=== PATIENT | female | born 1965 | race Caucasian/White ===

== ENCOUNTER → 2020-07-05 18:02 | Outpatient (CLI) | payer OTHER, SELFPAY ==
--- NOTE | ~2020-07-05 | DEXA_ITS ---
Bone Density Report Name: Yomaira Watt Age: 54 Sex: Female Ethnicity: White Date of : 1965 Indication: postmenopausal; screening for osteoporosis; height loss; Referring Provider: Yamel, Esme Study: Bone densitometry was performed. Exam Date: July 05, 2020 Accession number: [id number] Bone Density: Region BMD T-score Z-score Classification AP Spine (L1-L4) 0.969 -0.7 0.2 Normal Femoral Neck (Left) 0.861 0.1 1.0 Normal Total Hip (Left) 0.967 0.2 0.8 Normal Femoral Neck (Right) 0.805 -0.4 0.5 Normal Total Hip (Right) 0.936 0.0 0.5 Normal Total Hip Mean 0.952 0.1 0.7 Normal World Health Organization criteria for BMD impression classify patients as: Normal (T-score at or above -1.0), Osteopenia (T-score between -1.0 and -2.5), or Osteoporosis (T-score at or below -2.5). 10-year Fracture Risk: FRAX not reported because: All T-scores for Spine Total, Hip Total, Femoral Neck at or above -1.0 Clinical Information Provided by Patient: Has used the following medications: Vitamin D Patient maximum height was 67 Menopause Age: 51 Drinks caffeinated beverages Onset of menses at age 14 Number of children 0 Impression: The patient has normal bone mass. Discussion: BONE DENSITY IS ABOVE THE MINIMUM DESIRABLE LEVEL AT ALL SKELETAL SITES TESTED. This patient?s bone mineral density is above the minimum desirable level (T-score -1.0 or better) at all sites measured. The patient should follow a healthful lifestyle (good nutrition with adequate calcium and vitamin D, and appropriate weight-bearing exercise). Follow-Up: Consider repeating this study in 5 years or sooner if there is some new clinical indication. Reported by: CIRILO on 07/05/2020 6:19:00 PM. Reviewed, dictated and finalized at location AKiran ARMSTRONG
== END ==
PROVIDERS: Visit Provider Nurse Practitioner
DX: Z13.820 Encounter for screening for osteoporosis (principal)
CPT/HCPCS: 77080

== ENCOUNTER → 2021-08-17 16:17 | Outpatient (CLI) | payer BC, SELFPAY ==
--- NOTE | ~2021-08-17 | MM_ITS ---
EXAMINATION: MM screening [facility] BI w maria del carmen HISTORY: Screening TECHNIQUE: Craniocaudal and mediolateral oblique 3-D tomosynthesis images were obtained and synthetic 2-D images were generated. CAD analysis was submitted and interpreted. COMPARISON: Comparison to multiple prior studies sequentially, with oldest reviewed study dated 04/04. BREAST PARENCHYMAL COMPOSITION: There are scattered areas of fibroglandular density. FINDINGS: There is no evidence of suspicious mass, calcification, or architectural distortion to sugg est malignancy in either breast. There has been no suspicious interval change. IMPRESSION: 1. No mammographic evidence of malignancy. 2. Recommend routine screening mammography in one year. BI-RADS Category 1: Negative Reviewed, dictated and finalized at location A.
== END ==
PROVIDERS: PCP Nurse Practitioner; Visit Provider Nurse Practitioner
DX: Z12.31 Encounter for screening mammogram for malignant neoplasm of breast (principal)
CPT/HCPCS: 77063; 77067

== ENCOUNTER → 2022-04-18 09:43 | Outpatient (CLI) | payer BC, SELFPAY ==
--- NOTE | ~2022-04-18 | US_ITS ---
EXAMINATION: US pelvic complete DATE: 04/18/2022 10:06 INDICATION: Postmenopausal bleeding Comparison:No prior studies for comparison. TECHNIQUE: Multiple transabdominal sonographic images of the pelvis performed. FINDINGS: The uterus measures 5.7 x 2.9 x 4.2 cm. The endometrial complex measures 3 mm. The right ovary measures 1.5 x 0.9 x 2.1 cm and the left ovary measures 1.8 x 1.1 x 2 cm. There are small follicles in each ovary. Normal doppler signal in both ovaries. There is no free fluid in the pelvis. There are no abnormal masses seen on either side. IMPRESSION: 1. Unremarkable pelvic ultrasound. Reviewed, dictated and finalized at location B. 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
== END ==
PROVIDERS: PCP Nurse Practitioner; Visit Provider Nurse Practitioner
DX: N95.0 Postmenopausal bleeding (principal)
CPT/HCPCS: 76856

== ENCOUNTER → 2022-08-20 10:35 | Outpatient (CLI) | payer BC, SELFPAY ==
--- NOTE | ~2022-08-20 | MM_ITS ---
EXAMINATION: MM screening [facility] BI w maria del carmen HISTORY: Screening mammogram TECHNIQUE: Craniocaudal and mediolateral oblique 3-D tomosynthesis images were obtained and synthetic 2-D images were generated. CAD analysis was submitted and interpreted. COMPARISON: 08/17/2021, 09/21/2017, 09/17/2016 BREAST PARENCHYMAL COMPOSITION: There are scattered areas of fibroglandular density. FINDINGS: No suspicious mass, calcification, or architectural distortion are identified in either mac ast to suggest malignancy. There has been no suspicious interval change. IMPRESSION: 1. No mammographic evidence of malignancy. 2. Recommend routine screening mammography in one year. BI-RADS Category 1: Negative Reviewed, dictated and finalized at location A.
== END ==
PROVIDERS: PCP Nurse Practitioner; Visit Provider Nurse Practitioner
DX: Z12.31 Encounter for screening mammogram for malignant neoplasm of breast (principal)
CPT/HCPCS: 77063; 77067

== ENCOUNTER 2023-02-18 17:05 | Emergency (ER) | payer BC, SELFPAY ==
--- NOTE | ~2023-02-18 | CT_ITS ---
EXAMINATION: CT brain wo con DATE: 02/18/2023 17:17 INDICATION: fall . TECHNIQUE: Computed tomography (CT) of the head was performed without intravenous contrast. The mA wa s adjusted according to patient size. Iterative reconstruction technique was employed. The dose-lengt h product was 605.33 mGy-cm. COMPARISON: None. FINDINGS: No acute intracranial hemorrhage or extra-axial fluid collection. No hydrocephalus, mass, or herniation. No acute ischemic infarct. Unremarkable dural venous sinus attenuation. No acute osseous abnormality. Large left posterior scalp hematoma. The aerated spaces are clear. IMPRESSION: No acute intracranial process. Reviewed, dictated and finalized at location K. 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
--- NOTE | ~2023-02-18 | CT_ITS ---
EXAMINATION: CT cervical spine wo con DATE: 02/18/2023 17:19 INDICATION: fall TECHNIQUE: Computed tomography (CT) of the cervical spine was performed without intravenous contrast. Automated exposure control and iterative reconstruction technique were employed. The dose-length pro duct was 268.27 mGy-cm. COMPARISON: None. FINDINGS: Vertebral Body Alignment: Intact. Reversed lordosis centered at C5-6. Craniocervical and atlantoaxial alignment: Moderate degenerative change. Alignment intact. Osseous structures/fracture: No evidence of a lytic or blastic process in the visualized spine. No e vidence of acute fracture. Cervical soft tissues: The paraspinal soft tissues planes are maintained. Degenerative changes: Degenerative changes, without severe neural foraminal or central canal narrowin g. IMPRESSION: No acute fracture or traumatic malalignment in the cervical spine. Reviewed, dictated and finalized at location K. O PROGRAM DIRECTOR
[2023-02-18 17:08] VITALS: BP 133/89; PULSE 106; RESP 16; TEMP 36.2; O2SAT 97
[2023-02-18 18:43] VITALS: BP 130/80; PULSE 80; RESP 16; TEMP 36.6; O2SAT 99
--- NOTE | 2023-02-18 18:50 | ED.FALL ---
HPI - Fall General Chief Complaint: Fall Stated Complaint: fall Time Seen by Provider: 02/18/23 17:26 History of Present Illness HPI Narrative: 57-year-old female presenting after a fall. States that she got out of a friend's jeep yesterday and her foot got caught on the railing and she fell back striking her head. She did not lose consciousness. States that she has a large goose egg on the back of her head. No vision or speech changes, numbness or weakness, neck or back pain. No further injuries. Related Data Allergies Allergy/AdvReac Type Severity Reaction Status Date / Time Penicillins Allergy Intermediate HIVES Verified 08/08/18 07:51 Review of Systems Review of Systems: All systems reviewed & are unremarkable except as noted in HPI and below PMFSH Family History Family History Father Hypertension Sibling Patient's sister is in good health Mother Family history of lung cancer, Onset Age: 59 Social History Social History Smoking status: Never smoker Alcohol intake: current Exam Narrative: GENERAL: Well-appearing, In no acute distress, pleasant and cooperative HEAD: Normocephalic, 3 x 3 cm hematoma left parietal region, no lacerations EYES: PERRLA and EOMI. ENT: Nares clear, no rhinorrhea or epistaxis. NECK: Supple. no midline tenderness CHEST: No respiratory distress. HEART: Regular rate and rhythm EXTREMITIES: Normal range of motion. SKIN: Warm, dry, no rash. NEURO: Alert and oriented x3. 5/5 strength in all extremities PSYCH: Normal mood and affect. Course Vital Signs Vital signs: Vital Signs Temperature 97.2 F L 02/18/23 17:08 Pulse Rate 106 H 02/18/23 17:08 Respiratory Rate 16 02/18/23 17:08 Blood Pressure 133/89 02/18/23 17:08 Pulse Oximetry 97 02/18/23 17:08 Temperature 97.8 F 02/18/23 18:43 Pulse Rate 80 02/18/23 18:43 Respiratory Rate 16 02/18/23 18:43 Blood Pressure 130/80 02/18/23 18:43 Pulse Oximetry 99 02/18/23 18:43 MDM - Fall MDM Narrative Medical decision making narrative: 57-year-old female presenting after closed head trauma. Vitals are stable. Exam remarkable for the above. CT brain and C-spine show no acute abnormalities. Patient is safe for outpatient management. Tylenol and ibuprofen for pain control. Discussed concussion precautions. Advised close PCP follow-up. Patient voices understanding and is agreeable with plan. Discharged in stable condition. Differential Diagnosis Differential diagnosis: Likely other ( Fall, closed head injury, concussion, hematoma) Medical Records Attestation: I reviewed the patient's medical records. Imaging Data Radiologist's impression: ITS Impressions Head CT 02/18/23 17:20 IMPRESSION: No acute intracranial process. Cervical Spine CT 02/18/23 17:22 IMPRESSION: No acute fracture or traumatic malalignment in the cervical spine. Critical Care Time Critical Care Time Critical Care Time: No Discharge Plan Discharge Clinical Impression: Closed head injury, Scalp hematoma Patient Disposition: Home, Self-Care Condition: Stable Instructions: Antibiotic Form, Concussion (ED), Contusion in Adults (ED) Additional Instructions: The CT scans today show no acute abnormalities. You do have a large hematoma/contusion to your scalp. Please use Tylenol and ibuprofen for pain control. Please follow-up with your PCP. If your symptoms suddenly worsen or other concerning symptoms arise, please return to the ER. Follow-up/Referrals: Yamel,Malika Alvarez MD [Primary Care Provider] - Stand Alone Forms: Work/School Release IP
== END 2023-02-18 19:50 | disposition home or self-care (01) ==
PROVIDERS: Emergency Provider Emergency Medicine; PCP Nurse Practitioner
DX: S00.03XA Contusion of scalp, initial encounter (principal); V58.4XXA Person boarding or alighting a pick-up truck or van injured in noncollision transport accident, initial encounter
CPT/HCPCS: 70450; 72125; 99284

== ENCOUNTER 2023-11-12 15:45 | Outpatient (CLI) | payer BC, SELFPAY ==
--- NOTE | ~2023-11-12 | MM_ITS ---
EXAMINATION: MM screening [facility] BI w maria del carmen HISTORY: Screening TECHNIQUE: Craniocaudal and mediolateral oblique 3-D tomosynthesis images were obtained and synthetic 2-D images were generated. CAD analysis was submitted and interpreted. COMPARISON: Comparison to multiple prior studies sequentially, with oldest reviewed study dated 09/08. BREAST PARENCHYMAL COMPOSITION: Not dense: There are scattered areas of fibroglandular density. FINDINGS: There is no evidence of suspicious mass, calcification, or architectural distortion to sugg est malignancy in either breast. There has been no suspicious interval change. IMPRESSION: 1. No mammographic evidence of malignancy. 2. Recommend routine screening mammography in one year. BI-RADS Category 1: Negative Reviewed, dictated and finalized at location B.
== END 2023-11-12 15:46 | disposition home or self-care (01) ==
LOC: MICIMG 15:46
PROVIDERS: PCP Nurse Practitioner; Visit Provider Nurse Practitioner
DX: Z12.31 Encounter for screening mammogram for malignant neoplasm of breast (principal)
CPT/HCPCS: 77063; 77067

== ENCOUNTER 2024-04-06 01:21 | Day surgery (SDC) | payer BC, SELFPAY ==
[2024-04-02 09:19] VITALS: BMI 25.0
--- NOTE | 2024-04-02 09:21 | PC.NURSE ---
Report to the Outpatient Waiting Room, entrance under the green pavilion located off [facility], at time _0900_ on date _[id number]_. Planned Procedure Time: _1100_.? Time changes happen often and if your time is changed the preop area will call you the afternoon before. - You and your visitor will be asked to self-screen and do not enter if you have any COVID symptoms. Please call surgeon if you need to reschedule. - A mask is optional within the hospital at this time. Patients may have clear liquids (water, carbonated beverages, clear teas, apple juice) until 3 hours prior to surgery with a maximum of 20 ounces. - No food from midnight until time of surgery and no smoking, or chewing tobacco (or any form of nicotine). No chewing gum, candy or mints. Take only the following medications with a SIP of water on the morning of surgery: __Citalopram DO NOT STOP ANY OF YOUR OTHER PRESCRIPTION MEDICATIONS PRIOR TO SURGERY EXCEPT THE FOLLOWING Hold all vitamins and supplements for 3 days per anesthesiologist. Medications to discontinue per physician Date to take last zkcs___[phone]____ Please no make-up, nail lao, hairspray, perfume, deodorant, or body powder the day of surgery.? No jewelry (including any body piercings) or valuables the day of surgery, leave them at home.? Please take a shower or bath the night before, or the morning of, surgery with an antibacterial soap.? Wear comfortable, loose fitting clothing.? - Jewelry must be removed prior to entering the operating room.? Rings and piercings that are not removed may be cut off. - The hospital will not accept responsibility for valuables.? - Please leave all valuables, including medications, at home the day of surgery. If you are going home after surgery, a licensed auto transport driver must drive you home.? - NO public transportation without another adult if you receive anesthesia. - We recommend that an adult stay with you for 24 hours following discharge. - We also recommend that you do not drive, make important decision, drink alcoholic beverages, or take any drugs that were not prescribed by your health care provider for at least 24 hours after your discharge time. Follow any additional instructions given to you from your surgeon. Telephone instructions given to __Yomaira__and asked if any additional questions and then verbalized understanding. Patient advised to call surgeon office or pre surgery nurse liaison [phone] if any additional questions.
--- OUTSIDE RECORDS SUMMARY | 2024-04-06 01:25 | XMS_ITS | Referral Summary ---
Author Organization [facility] Address [address] [address] Care Team Providers Care Cook Helper Preserves Name Role Phone Unavailable Primary Care Provider Unavailabl e Source Comments [facility],non-owned Affiliates and Associated Physician Practices is amultiple site organization consisting of ambulatory clinics and hospital sitesin [place], [place], [place] and [place]. This disclosure is being madepursuant to the Care Everywhere program and may not contain all information available regarding this patient. Last updated 17.[facility] CME Social History Tobacco Use Types Packs/Day Years Used Date Smoking Tobacco: Never Assessed Sex and Gender Information Value Date Recorded Sex Assigned at Not on file Gender Identity Not on file Sexual Orientation Not on file Plan of Treatment Not on file
--- OUTSIDE RECORDS SUMMARY | 2024-04-06 01:25 | XMS_ITS | Patient Health Record ---
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 Name Role Phone Mirna Foster Primary Care Provider Amber Naik Unavailable [phone] Allergies Allergen (clinical drug ingredient) Drug/Non Drug Allergy documented on EMR Reaction Allergy Type Onset Date Status penicillin G Penicillin G Sodium hives Drug Allergy Active Reason For Referral No Information Medications Medication SIG (Take, Route, Frequency, Duration) Notes Start Date End Date Status Citalopram Hydrobromide 20 MG 1 tablet Orally Once a day for 30 days 04/01/2024 Active Cetirizine HCl 10 MG 1 tablet Orally Onc e a day for 30 days 09/11/2022 Active Vitamin D (Ergocalciferol) 1.25 MG (93485 UT) 1 capsule Orally for 30 day(s) Active Multivitamin - TAKE 1 TABLET BY SARAH DAILY Orally Once a day for 30 days Active Osphena Active hydrOXYzine HCl 10 MG 1 tablet as needed Orally Once a day for 30 days at night Active Probiotic - as directed Orally O nce a day Active Daily-Imtiaz - TAKE 1 TABLET BY SARAH DAILY for 30 Not-Taking Mirtazapine 15 MG 1 tablet at bedtime Orally Once a day for 30 day(s) 01/10/2021 Not-Taking Fluticasone Propionate 50 MCG/ACT 1 spray in each nostril Nasally Once a day for 30 days 09/11/2022 Active Social History Tobacco Use: Social History Observation Description Date Details (start date - stop date) Never Smoker NA - NA Sex Assigned At : Social History Observation Description Sex Assigned At Female Dont use, Tobacco Use/Smoking Question Answer Notes Are you a nonsmoker Tobacco Control (Standard) Question Answer Notes Tobacco use: Nonsmoker Problems Problem Type SNOMED Code ICD Code Onset Dates Problem Status W/U Status Risk Notes Problem Depression (202229949) Depression (F32.9) Active confirmed Problem Anxiety (79906069) Anxiety (F41.9) Active confirmed Problem Seasonal allergy (731958259) Seasonal allergies (J30.2) Active confirmed Problem 944815034 Moderate episode of recurrent major depressive disorder (F33.1) 10/10/19 17 Active confirmed Problem 374691377 Psychophysiologi daina insomnia (F51.04) Active confirmed Encounters Encounter Location Date Provider Diagnosis [facility] [address] [place], [place] [address] [address] 05/21/2023 Ambersantiago Naik Depression F32.9 and Anxiety F41.9 [facility] [address] [place], [place] [address] [address] 2023 Ambersantiago Naik Depression F32.9 and Anxiety F41.[address] [address] 03/04/2024 Amber Gumaro Depression F32.9 and Anxiety F41.[address] [address] 04/01/2024 Ambersantiago Naik Depression F32.9 and Anxiety F41.[address] [address] 04/24/2023 Mirna Foster [address] [address] 02/13/2024 Amber Gumaro Depression F32.[address] [address] 02/20/2024 Amber Gumaro Depression F32.9 and Anxiety F41.9 Assessments Encounter Date Diagnosis (ICD Code) Assessment Notes Treatment Notes Treatment Clinical Notes Section Notes 2023 Depression (ICD-10 - F32.9) Deford agreement to continue current regimen. 05/21/2023 Depression (ICD-10 - F32.9) [place] agreement to continue current regimen. 04/01/2024 Depression (ICD-10 - F32.9) Hx of doing well with Lexapro. Fluoxetine with SE of restlessness, insomnia, poor appetite. Stopping fluoxetine, starting citalopram. Discussed r/b/se. 03/04/2024 Depression (ICD-10 - F32.9) Antidepressant education - reviewed side effects which may include increased risk of suicide, anxiety, sleep disturbance, nausea, dry mouth, increased bruising, sexual dysfunction, reyes, wt gain, and serotonin syndrome. Discussed talk half a lexapro for 3 days then stop and start fluoxetine the following day. Client v/u and states she has a pill-cutter at home. 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 Continues at 10mg at this time. 05/21/2023 Anxiety (ICD-10 - F41.9) Encouraged coping mechanisms. 2023 Anxiety (ICD-10 - F41.9) Encouraged coping mechanisms. 05/21/2023 Other Reasons, potential benefits, potential risks, interactions and side effects of all medications were discussed. The Patient/Guardian asked appropriate questions, appeared to understand the answers, and decided to accept the treatment and continue being followed. Alternatives and expected course without treatment were reviewed. The Patient/Guardian is aware of the need to contact the office or return for an earlier appointment if any problems or concerns arise. May also contact the 24-hour crisis hotline (R), refer to the closest emergency room or call 911 if new symptoms arise of existing symptoms worsen. The Patient/Guardian is aware that this would apply to symptoms like: suicidal ideation, homicidal ideation, high risk behaviors, manic symptoms, psychotic symptoms, physical symptoms, or any other symptoms that may be dangerous to self or others. Greater than 50% of time spent on coordination and counseling where psychopharmacology as well as psychotherapeutic interventions were discussed along with review of treatments in the past. Education provided concerning need for adequate hydration. Patient/Guardian verbalized understanding of education, treatment plan and follow up. This session was completed telephonically with client/parental/guardi an consent: Unable to determine movement status, assess appearance, affect, AIMS, or vital signs. 2023 Other Reasons, potential benefits, potential risks, interactions and side effects of all medications were discussed. The Patient/Guardian asked appropriate questions, appeared to understand the answers, and decided to accept the treatment and continue being followed. Alternatives and expected course without treatment were reviewed. The Patient/Guardian is aware of the need to contact the office or return for an earlier appointment if any problems or concerns arise. May also contact the 24-hour crisis hotline ([facility]), refer to the closest emergency room or call 911 if new symptoms arise of existing symptoms worsen. The Patient/Guardian is aware that this would apply to symptoms like: suicidal ideation, homicidal ideation, high risk behaviors, manic symptoms, psychotic symptoms, physical symptoms, or any other symptoms that may be dangerous to self or others. Greater than 50% of time spent on coordination and counseling where psychopharmacology as well as psychotherapeutic interventions were discussed along with review of treatments in the past. Education provided concerning need for adequate hydration. Patient/Guardian verbalized understanding of education, treatment plan and follow up. This session was completed telephonically with client/parental/guardi an consent: Unable to determine movement status, assess appearance, affect, AIMS, or vital signs. 03/04/2024 Other Reasons, potential benefits, potential risks, interactions and side effects of all medications were discussed. The Patient/Guardian asked appropriate questions, appeared to understand the answers, and decided to accept the treatment and continue being followed. Alternatives and expected course without treatment were reviewed. The Patient/Guardian is aware of the need to contact the office or return for an earlier appointment if any problems or concerns arise. May also contact the 24-hour crisis hotline ([facility]), refer to the closest emergency room or call 911 if new symptoms arise of existing symptoms worsen. The Patient/Guardian is aware that this would apply to symptoms like: suicidal ideation, homicidal ideation, high risk behaviors, manic symptoms, psychotic symptoms, physical symptoms, or any other symptoms that may be dangerous to self or others. Greater than 50% of time spent on coordination and counseling where psychopharmacology as well as psychotherapeutic interventions were discussed along with review of treatments in the past. Education provided concerning need for adequate hydration. Patient/Guardian verbalized understanding of education, treatment plan and follow up. This session was completed telephonically with client/parental/guardi an consent: Unable to determine movement status, assess appearance, affect, AIMS, or vital signs. 04/01/2024 Other Reasons, potential benefits, potential risks, interactions and side effects of all medications were discussed. The Patient/Guardian asked appropriate questions, appeared to understand the answers, and decided to accept the treatment and continue being followed. Alternatives and expected course without treatment were reviewed. The Patient/Guardian is aware of the need to contact the office or return for an earlier appointment if any problems or concerns arise. May also contact the 24-hour crisis hotline ([facility]), refer to the closest emergency room or call 911 if new symptoms arise of existing symptoms worsen. The Patient/Guardian is aware that this would apply to symptoms like: suicidal ideation, homicidal ideation, high risk behaviors, manic symptoms, psychotic symptoms, physical symptoms, or any other symptoms that may be dangerous to self or others. Greater than 50% of time spent on coordination and counseling where psychopharmacology as well as psychotherapeutic interventions were discussed along with review of treatments in the past. Education provided concerning need for adequate hydration. Patient/Guardian verbalized understanding of education, treatment plan and follow up. This session was completed telephonically with client/parental/guardi an consent: Unable to determine movement status, assess appearance, affect, AIMS, or vital signs. Plan Of Treatment No Information Insurance Providers Payer Name Payer Address Payer Phone Subscriber Number Group Number Insured Name Patient Relationship to Insured Coverage Start Date Coverage End Date FORMERLY [facility] [address] [place] [address] [id number] As Yomaira Watt Self - patient is the insured 1 Medical (General) History Medical History History ICD Code Depression Anxiety Surgical History Surgery Date(Month/Year) D and C 1979 Hospitalization History Reason Date(Month/Year) gastritis 2002
--- OUTSIDE RECORDS SUMMARY | 2024-04-06 01:25 | XMS_ITS | Clinical Summary ---
Author Organization [facility] Address [address] [place] [address] Care Team Providers Care Breaker Unit Assembler Name Role Phone Unavailable Primary Care Provider Unavailabl e Allergies Active Allergy Reactions Criticality Noted Date Comments Amoxicillin Unknown 09/29/2019 Medications Lactobacillus acidophilus (Probiotic) 10 billion cell Capsule Probiotic Active multivitamin (DAILY-JULIAN) tablet Take 1 Tablet by mouth daily. Active cetirizine (ZyrTEC) 10 mg tablet 1 tablet Orally Once a day for 30 days 3 Active fluticasone propionate (FLONASE) 50 mcg/spray [place], Suspension nasal inhaler 1 spray in each nostril Nasally Once a day for 30 days 3 Active escitalopram oxalate (LEXAPRO) 20 mg tablet 1 tablet Orally Once a day for 30 days 4 Active Vit B Comp & C-Vit E-[id number]-Zn 0.4 mg Tablet TAKE 1 TABLET BY MOUTH DAILY Orally Once a day for 30 days Active estradioL (VAGIFEM) 10 mcg tablet Insert 10 mcg vaginally. Active Active Problems No known active problems Encounters Date Type Department Care Team Description 03/11/2024 External Device Data [facility]CTION Provider, Abstract 03/10/2024 External Device Data [facility] Provider, Abstract 02/25/2024 External Device Data [facility] Provider, Abstract from Last 3 Months Family History Medical History Relation Name Comments Heart Disease Father Hypertension Father Prostate Cancer Father Lung Cancer Mother Relation Name Status Comments Father Mother Social History Tobacco Use Types Packs/Day Years Used Date Smoking Tobacco: Never Smokeless Tobacco: Never Alcohol Use Standard Drinks/Week Comments Yes 0 (1 standard drink = 0.6 oz pur e alcohol) Comments No Sex and Gender Information Value Date Recorded Sex Assigned at Not on file Legal Sex Female 8:17 AM CDT Gender Identity Not on file Sexual Orientation Not on file Last Filed Vital Signs Vital Sign Reading Time Taken Comments Blood Pressure 102/74 07/10/2023 9:33 AM CDT Pulse 69 07/10/2023 9:33 AM CDT Temperature 36.7 C (98.1 F) 07/10/2023 9:33 AM CDT Respiratory Rate 16 11/30/2020 10:03 AM CDT Oxygen Saturation 94% 07/10/2023 9:33 AM CDT Inhaled Oxygen Concentration - - Weight 73 kg (161 lb) 08/28/2023 2:54 PM CDT Height 167.6 cm (5' 6 ) 08/28/2023 2:54 PM CDT Body Mass Index 25.99 08/28/2023 2:54 PM CDT Plan of Treatment Health Maintenance Due Date Last Done Comments DTAP/TDAP/TD VACCINES (1 - Tdap) 11/18/1986 HEPATITIS B VACCINES (1 of 3 - 19+ 3-dose series) 11/18/1986 COLORECTAL SCREENING 11/18/2012 Colorectal Cancer Screening 11/18/2012 FIT-DNA Q 3 years 11/18/2012 FIT/FOBT Q 1 year 11/18/2012 Flex Sig/CT Colonography Q 5 years 11/18/2012 ZOSTER VACCINE (1 of 2) 11/18/2017 BREAST CANCER SCREENING 04/13/2021 04/13/19 21, 04/01/2019, 02/18/2019 (Previously completed) CERVICAL CANCER SCREENING 06/18/20222019 (Previously completed) Pre-Diabetes and Diabetes Screening 09/28/2022 09/29/2019 INFLUENZA VACCINE (#1) 2023 PNEUMOCOCCAL VACCINE 0-64 YEARS Aged Out No longer eligible b ased on patient's age to complete this topic Procedures Procedure Name Priority Date/Time Associated Diagnosis Comments HEMOGLOBIN A1C Routine 09/29/2019 4:36 PM CDT Screening for diabetes mellitus from Last 3 Months or Most Recently Relevant to Health Maintenance Results * HEMOGLOBIN A1C (09/29/2019 4:36 PM CDT) HEMOGLOBIN A1C 5.5 <=5.6 % 09/29/2019 8:48 PM CDT [facility] EST. AVG GLUCOSE, A1C 111 mg/dL 09/29/2019 8:48 PM CDT [facility] Blood Venipuncture / Unknown 09/29/2019 4:36 PM CDT 09/29/2019 4:36 PM CDT Narrative [facility] - 09/29/2019 8:48 PM CDT HGB A1C INTERPRETATION NORMAL: <5.7% PRE-DIABETES: 5.7 - 6.4% DIABETES: 6.5% OR GREATER us Porsche Saleem MD CHEMISTRY ORDERABLES Final Result [facility] CLIA# [id number] [place] [address] from Last 3 Months or Most Recently Relevant to Health Maintenance Insurance [facility] BLUE ACCESS CHOICE
--- OUTSIDE RECORDS SUMMARY | 2024-04-06 01:25 | XMS_ITS | Data Portability ---
Author Organization [facility] Address [address] [place] [address] Assessment Encounter Date Assessment Date Assessment LastModified by Organization Details LastModified Time 08/19/2019 08/19/2019 Annual gynecological exam performed. Patient will come back in a year unless there are new symptoms. [email or web address] Not available 08/19/2019 10:54:26 Plan of Treatment Reminders Order Date Submit Date Provider Last Modified By Organization Details Last Modified Time Details Appointments None record ed. Lab None record ed. Referral None record ed. Procedures None record ed. Surgeries None record ed. Imaging None record ed. Medication Orders None record ed. Patient TargetsNo targets recorded. Patient InstructionsNo instructions recorded. Reason for Referral None Reported. Results Created Date Observation Date Name Description Value Unit Range Abnormal Flag Note LastModifiedBy Organization Detail LastModifiedTime 08/19/19 20 08/24/2019 pap, LB Pap test thin prep Negati ve for Intrae pithel ial Lesion or Malign abisai normal ACCES AYESHA #: [id number] Sourc e: Cervi daina/E ndoce rvica l LMP: 07/07 Date Taken : 08/18 Speci men Type: ThinP rep Vial Date Repor tracy: Clini daina Data: Cytot ech: Wyatt Marquez. Alverto r,CT( ASCP) Date Repor tracy: 020 Speci men Adequ acy: Satis facto ry for evalu ation Gener al Categ oriza tion: NEGAT ALVARO FOR INTRA EPITH ELIAL LESIO N OR MALIG BEATRIZ Inter preta tion/ Resul t: Atrop hy This speci men has been alex zed by the ThinP rep Imagi ng Jamey m, an inter activ e compu ter syste m which angelita ts the lab in the juane bairon of ThinP rep Pap Test slide sloan yeh imagi ng, the slide was revie wed by a Cytot echno logis t and/o r Patho logis t. D N A A S S A Y S R E P O R T TEST NAME RESUL TS ----- ---- ----- -- HPV High Risk Amadou marquez (TMA) ThinP rep Vial The human papil lomav irus (HPV) High Risk Screviraj n is an FDA-a pprov ed in-vi tro ampli fied nucle ic acid test for the quali tativ e detec tion of E6/E7 viral mRNA. Resul ts shoul d be corre lated with patie nt prese ntati on, histo ry, cervi daina cytol ogy and other clini daina and labor atory findi ngs. See https ://eBioscience/s ites/ defau lt/fi les/2 018-0 3/AW- 96611 _002_ 01.pd f for rut marquez. Test perfo rmed by [facility], [facility], d/b/a Tushar hurley, [address] , [place] [address] , Lyssa Evangelista ra, DO, Labor atory [facility]. HPV High Risk *HPV NOT DETEC TRACY (TYPE S 16, 18, 31, 33, 35, 39, 45, 51, 52, 56, 58, 59, 66, 68) *HPV: The human papil lomav irus (HPV) High Risk Screviraj marquez is an FDA-a pprov ed in-vi tro ampli fied nucle ic acid test for the quali tativ e detec tion of E6/E7 viral mRNA. Resul ts shoul d be corre lated with patie nt prese ntati on, histo ry, cervi daina cytol ogy and other clini daina and labor atory findi ngs. See https ://eBioscience/s ites/ defau lt/fi les/2 018-0 3/AW- 26817 _002_ 01.pd f for furth er infor wily marquez. [facility] by [facility] [employer], [address], [place] [address] , Lyssa Evangelista ra, DO, Labor [facility] tor. End of Repor t Techn ical servi elisabet provi ded by [facility] [employer], [address] [place] [address] Manuel Lemus MD, [facility]. Case revie wed and diagn osis rende red at [facility], d/b/a [employer], [address] [place] [address] Manuel Lemus MD, [facility]. CONFI DENTI AL Not Available [facility] ([facility]) [address] [place] [address], [place], [address], 08/24/2019 07:25:05 08/19/19 20 08/22/2019 HPV DNA, high- risk HPV high risk NOT DETECT ED normal Not Available [facility] ([facility]) [address] [place] [address], [place], [address], 08/24/2019 07:25:05 Result Notes None recorded. Problems Name Problem SNOMED Code Status Onset Date Resolution Date Notes Provider Name and Address Organization Details Recorded Time Acute vaginitis 83407811 Active 2015 Acute vaginitis; Practice ID: 0001 Not Available [facility] 0 21:38:[address] Concept Active 2015 Encntr for independent consultant exam (general) (routine) w/o abn findings;P ractice ID: 0001 Not Available [facility] 0 21:38:29 Screening for malignant neoplasm of rectum Active 2015 Encounter for screening for malignant neoplasm of rectum;Pra ctice ID: 0001 Not Available [facility] 0 21:38:29 Blood leukocyte number above reference range 064006501 Active 2015 Elevated white blood cell count, unspecifie d;Practice ID: 0001 Not Available [facility] 0 21:38:29 Urinary tract infectiou s disease 73061752 Active 2015 Urinary tract infection, site not specified; Practice ID: 0001 Not Available [facility] 0 21:38:29 Microscop ic hematuria 046761938 Active 2015 Other microscopi c hematuria; Practice ID: 0001 Not Available [facility] 0 21:38:30 Evaluatio n finding Active 2018 Hematuria, unspecifie d;Practice ID: 0001 [facility] Available [facility] 0 21:38:30 Flatulenc e, eructatio n and gas pain 569371633 Active 2012 Bloating;P ractice ID: 0001 Not Available [facility] 0 21:38:30 Specializ ed medical examinati on Active 2013 Routine gynecologi daina examinatio n;Practice ID: 0001 Not Available [facility] 0 21:38:30 Screening for malignant neoplasm of cervix Active 2013 Pap Smear;Prac anita ID: 0001 Not Available [facility] 0 21:38:30 Cytologic finding 625028349 Active 2013 Pap Abnormal LGSIL;Prac anita ID: 0001 Not Available [facility] 0 21:38:30 test negative 049359233 Active 2013 Negative Test;Pract ice ID: 0001 Not Available [facility] 0 21:38:31 Vaginitis and vulvovagi nitis Active 2013 Vaginitis and vulvovagin itis, unspecifie d;Practice ID: 0001 Not Available [facility] 0 21:38:31 Leukorrhe a 124681033 Active 2013 Leukorrhea , not specified as infective; Practice ID: 0001 Not Available [facility] 0 21:38:31 Increased frequency of urination 299741513 Active 2013 Urinary frequency; Practice ID: 0001 Not Available [facility] 0 21:38:31 Adult health examinati on Active 2014 Routine general medical examinatio n at a health care facility;P ractice ID: 0001 Not Available [facility] 0 21:38:31 Atypical squamous cells of undetermi francine significa nce on cervical Papanicol aou smear 601349807 Active 2014 Atyp squam cell of undet signfc cyto smr crvx (ASC-US);P ractice ID: 0001 Not Available [facility] 0 21:38:31 Irregular periods 74719352 Active 2011 Irregular menstrual cycle;Prac anita ID: 0001 Not Available [facility] 0 21:38:31 At increased risk of sexually transmitt ed infection 391092196 Active 2011 Contact with or exposure to venereal diseases;P ractice ID: 0001 Not Available [facility] 0 21:38:32 Female genital organ symptoms 352269904 Active 2011 Unspecifie d symptom associated with female genital organs;Pra ctice ID: 0001 Not Available [facility] 0 21:38:32 Uterine leiomyoma 00420073 Active 2012 Leiomyoma of uterus, unspecifie d;Practice ID: 0001 Not Available [facility] 0 21:38:32 Finding of trunk structure 953692667 Active 2012 Abdominal or pelvic swelling, mass, or lump, generalize d;Practice ID: 0001 Not Available [facility] 0 21:38:32 Dysuria 26555459 Active 2010 Dysuria;Pr actice ID: 0001 Not Available [facility] 0 21:38:33 Dysfuncti onal uterine bleeding Active 2010 DUB;Practi ce ID: 0001 Not Available [facility] 0 21:38:33 Leukopeni a 79245053 Active 2011 LEUKOCYTOP ENIA NOS;Practi ce ID: 0001 Not Available [facility] 0 21:38:[address] Concept Active 2015 Encntr for general adult medical exam w/o abnormal findings;R ecorded Elsewhere: No Locatio n: [facility] rce: EHR Chroni c: N Practice ID: 0001 Billa ble Time: 08:30:00 AM Not Available [facility] 0 21:38:34 Vaginolab ial hernia Active 2017 Other specified noninflamm atory disorders of vagina;Rec orded Elsewhere: No Locatio n: [facility] rce: EHR Chroni c: N Practice ID: 0001 Billa ble Time: 11:00:00 AM Not Available [facility] 0 21:38:34 Malaise and fatigue 439484388 Active 2013 Fatigue;Re corded Elsewhere: No Locatio n: [facility] rce: EHR Chroni c: N Practice ID: 0001 Billa ble Time: 08:30:00 AM Not Available [facility] 0 21:38:36 Problem Notes None recorded. Procedures Surgical History Date Name Laterality Status Provider Name and Address Organization Details Recorded Time Dilation and Curettage completed Kaitlynn Quan [facility] 08/19/2019 11:02:01 Imaging Results None recorded. Procedure Notes None recorded. Medical Equipment None Reported. Allergies Allergen ID Allergen Name Allergen Category Reaction Reaction Severity Criticality Documentation Date Start Date Code Code System Note Provider Name and Address Organization Details Recorded Time 1169 amoxicill in medicatio n Not available Not available Not available 08/19/2019 723 RxNorm Kaitlynn Quan [facility] 0 11:00:32 Medications Name Sig Start Date Stop Date Status Note LastModified by Organization Details LastModified Time amoxicill in 500 mg capsule take 1 capsule (500MG) by oral route 3 times every day for 10 days 02/14 completed Prescrib ed Elsewher e: No [facility] M odify By: gmedical Encount er DateTime : 02/06/20 12 02:49:27 PM Not Available Not Available Not Available Zithromax Z-Sal 250 mg tablet take 2 tablet by oral route every day for 1 day then 1 tablet (250 mg) by oral route once daily for 4 days 11/24 completed Prescrib ed Elsewher e: No Locat ion: Desiree cali [facility] odify By: dior kimbroughuntlesley DateTime : 11/21/19 16 03:42:06 PM Not Available Not Available Not Available Diflucan 150 mg tablet take 1 tablet by oral route once 07/21 completed Prescrib ed Elsewher e: No Locat ion: Desiree cali [facility] odify By: amtessy Cali ncounter DateTime : 08/14/19 18 11:00:00 AM Not Available Not Available Not Available Biaxin 500 mg tablet take 1 tablet by oral route every 12 hours 07/11 completed Prescrib ed Elsewher e: No Locat ion: Desiree cali [facility] odify By: jackson caldwell DateTime : 10/17/19 16 06:31:23 PM Not Available Not Available Not Available Macrobid 100 mg capsule take 1 capsule (100MG) by oral route every 12 hours with food 07/11 completed Prescrib ed Elsewher e: No Locat ion: [facility] odify By: tahmina pavon DateTime : 07/03/19 13 04:30:00 PM Not Available Not Available Not Available Microgest in FE 03/09 (28) 1 mg-20 mcg (21)/75 mg (7) tablet TAKE 1 TABLET BY MOUTH EVERY DAY 10/21 completed Prescrib ed Elsewher e: No Locat ion: Desiree cali [facility] odify By: aramis kimbroughuntlesley DateTime : 08/19/19 14 04:59:16 PM Not Available Not Available Not Available Metrogel Vaginal 0.75 % (37.5 mg/5 gram) insert 1 applicat orful by vaginal route every day at bedtime 05/29 completed Prescrib ed Elsewher e: No Locat ion: Desiree cali [facility] odify By: dior Cali ncountlesley DateTime : 05/16/19 16 03:07:39 PM Not Available Not Available Not Available Cipro 500 mg tablet take 1 tablet by oral route every 12 hours 07/11 completed Prescrib ed Elsewher e: No Locat ion: Desiree cali [facility] odify By: jackson Rose r DateTime : 10/31/19 16 08:39:36 AM Not Available Not Available Not Available Zoloft 25 mg tablet take 1 tablet by oral route every day 07/16 completed Prescrib ed Elsewher e: Yes Loca tion: Desiree cali [facility] odify By: corrie lee DateTime : 12/28/19 11 09:00:00 AM Not Available Not Available Not Available Celexa 40 mg tablet take 1 tablet by oral route every day active Prescrib ed Elsewher e: Yes Loca tion: Desiree cali [facility] odify By: corrie lee DateTime : 07/17/19 18 10:30:00 AM Not Available Not Available Not Available Bactrim DS 800 mg-160 mg tablet take 1 tablet by oral route every 12 hours 07/11 completed Prescrib ed Elsewher e: No Locat ion: Desiree cali [facility] odify By: jackson Rose r DateTime : 11/17/19 16 08:15:00 AM Not Available Not Available Not Available Vitamins and Minerals tablet active Prescrib ed Elsewher e: Yes Loca tion: Desiree cali [facility] odify By: dior lee DateTime : 03/21/19 12 09:00:00 AM Not Available Not Available Not Available Premarin 0.625 mg/gram vaginal cream insert (1G) by vaginal route every other day for about a month then as needed 07/11 completed Prescrib ed Elsewher e: No Locat ion: Desiree cali [facility] odify By: jackson caldwell DateTime : 12/27/19 16 01:00:00 PM Not Available Not Available Not Available Lexapro 5 mg tablet take 1 tablet by oral route every day 03/21 completed Prescrib ed Elsewher e: Yes Loca tion: Georgiereno viraj [facility] odify By: dior lee DateTime : 02/01/20 11 09:00:00 AM Not Available Not Available Not Available Xifaxan 200 mg tablet take 1 tablet by oral route 3 times every day 07/02 completed Prescrib ed Elsewher e: Yes Loca tion: [facility] odify By: emely Dobbs nter DateTime : 05/08/19 13 11:30:00 AM Not Available Not Available Not Available Celexa active Not Available Not Availa ble Not Available Vitamin And Mineral active Not Available Not Available Not Available Probiotic 10 billion cell capsule 2014 active Prescrib ed Elsewher e: Yes Loca tion: [facility] odify By: chelsi pavon DateTime : 07/08/19 15 08:15:00 AM Not Available Not Available Not Available Probiotic active Not Available Not Daphney ilable Not Available Lo Loestrin Fe 1 mg-10 mcg (24)/10 mcg (2) tablet take 1 tablet by oral route every day 03/25 completed Prescrib ed Elsewher e: No Locat ion: [facility] odify By: chelsi pavon DateTime : 07/24/19 12 09:42:58 AM Not Available Not Available Not Available Vitals Date Recorded Body height Body mass index (BMI) Body weight Systolic blood pressure Diastolic blood pressure Provider Name and Address Organization Details Last Updated DateTime 08/19/2019 2011.68 cm 0.2 kg/m2 71407.49 g 124 mm[Hg] 80 mm[Hg] Kaitlynn Quan [facility] 0 11:00:26 Social History None recorded. Functional Status None recorded. Mental Status None recorded. Family History Relationship Description Onset Age of this Age Resolved Age Notes LastModified by Organization Details LastModified Time Mother Carcinoma in situ of lung [email or web address] Not available 02/2019 11:01:26 Mother Hypothyroidi sm [email or web address] Not available 2019 11:01:45 Mother Disorder of thyroid gland [email or web address] Not available 2019 11:01:52 Father Carcinoma in situ of lung [email or web address] Not available 02/2019 11:01:26 Father Hypertensive disorder [email or web address] Not available 2019 11:01:33 Paternal Uncle Carcinoma in situ of lung [email or web address] Not available 02/2019 11:01:26 Notes:Father: Cancer, lung, Hypertension Mother: Thyroid disease, Hypothyroidism, Cancer, lung Paternal uncle: Cancer, lung Sister: ovarian cyst Medical History No medical history recorded. Gynecological History Statement/Question Response Current Control Method None Obstetrics History GPAL:G 0 P 0 0 0 0 Past Encounters Encounter ID Performer Location Encounter Start Date Encounter Closed Date Diagnosis/Indication Diagnosis SNOMED-CT Code Diagnosis ICD10 Code Diagnosis Note [id number] [facility] [address] [address] 08/19/2019 10:46:32 08/19/2019 12:01:40 Gynecologic examination 66380553 Z01.419 Take Calcium with Vitamin D 12-1500mg daily. Do monthly self breast exams. It is advised to get annual flu shot in the fall and she could obtain at [facility] or [facility] clinic. If you haven't received the Tdap vaccine in the last 10 years you should obtain one as well. Have mammogram yearly, bone density every 2-3 years and colonoscop y every 5-10 years depending on findings and history. Engage in daily exercise of low impact aerobic exercise 45-60 minutes 4-5 times weekly. Avoid tobacco and illicit drugs as well as using moderation with alcohol intake less than 1-2 8 oz beverages daily. This lifestyle behavior pattern will lead to less health conditions and longer life span. If BMI greater than 25 weight watchers or dietary consult advised. Questions have been answered. Patient appears to understand instructio ns, but if you have any further questions call or respond to this email Health Concerns Section Related Observation LastModified by Organization Detai ls LastModified Time None Recorded Concern Status LastModified by Organization Details LastModified Time None Recorded Advance Directives Directive None Recorded Payers Encounter Date Sequence Insurance Name Policy Number Policy Calvillo Covered Member ID Calvillo Member ID Guarantor Name 08/19/2019 1 [employer] [id number] Yomaira Watt [id number] Notes Date Note Type Note Provider Name and Address Organization Details Recorded Time 08/19/2019 text/html Annual GYNReport ed bypatient.History: no gynecologic complaints Menstrual cycle:Normal menses Urinary symptoms:No hematuria; No incontinence Vulva:No genital lesion Vagina:Normal vaginal discharge Breast:No breast pain; No breast lump; No nipple discharge Current Contraception:Not sexually active Sexual complaints:No sexual complaints; No pain during intercourse; Normal libido Menopausal Symptoms:No menopausal symptoms; Normal vaginal lubrication Psychological symptoms:No depression; No anxiety; No PMDD Preventive measures:Encourage self breast examination; Encourage regular exercise; Encourage no tobacco use; Encourage regular mammograms starting age 40; Followed with Q3 year pap smear and high risk HPV typing; Mammogram performed within the past year; Up to date on colonoscopy screening Criselda Briseno [facility]- [address], [place], [address], [facility] 08/19/2019 11:21:02 OBGyn Episode No OBEpisode recorded.
--- OUTSIDE RECORDS SUMMARY | 2024-04-06 01:25 | XMS_ITS | Clinical Summary ---
Author Organization [facility] Address [address] [place] [address] Care Team Providers Care Board Runner Name Role Phone Unavailable Primary Care Provider Unavailabl e Source Comments [facility],non-owned Affiliates and Associated Physician Practices is amultiple site organization consisting of ambulatory clinics and hospital sitesin [place], [place], [place]. This disclosure is being madepursuant to the Care Everywhere program and may not contain all information available regarding this patient. Last updated 17.[facility] Social History Tobacco Use Types Packs/Day Years Used Date Smoking Tobacco: Never Assessed Sex and Gender Information Value Date Recorded Sex Assigned at Not on file Gender Identity Not on file Sexual Orientation Not on file Plan of Treatment Health Maintenance Due Date Last Done Comments COLOGUARD (AGES 45-75) - COL ON CA SCREENING 1967 COLON MONITORING 1967 COLONOSCOPY - COLON CA SCREENING 1967 CT COLONOGRAPHY - COLON CA SCREENING 1967 Colorectal Cancer Screening 1967 FIT - COLON CA SCREENING 1967 FLEX SIG - COLON CA SCREENING 1967 LIPID TESTING 1967 MAMMOGRAM 1967 PAP SMEAR 1967 HIV SCREENING 11/18/1982 HEPATITIS C SCREENING 11/14/1985 DTAP/TDAP/TD VACCINES (1 - Tdap) 11/18/1986 HEPATITIS B VACCINE (1 of 3 - 19+ 3-dose series) 11/18/1986 PNEUMOCOCCAL VACCINE 50+ (1 of 1 - PCV) 11/18/2017 ZOSTER VACCINE (1 of 2) 11/18/2017 COVID-19 VACCINE ( - 2023-2 5 season) 2023 INFLUENZA VACCINE (#1) 2023 DEPRESSION SCREENING 02/19/2024 HIB VACCINE Aged Out No longer eligi ble based on patient's age to complete this topic HPV VACCINE Aged Out No longer eligi ble based on patient's age to complete this topic MENINGOCOCCAL (Group B) VACCINE Aged Out No longer eligible based on patient's age to complete this topic MENINGOCOCCAL VACCINE Aged Out No viviane paula eligible based on patient's age to complete this topic PNEUMOCOCCAL VACCINE Aged Out No long er eligible based on patient's age to complete this topic
--- OUTSIDE RECORDS SUMMARY | 2024-04-06 01:25 | XMS_ITS | Encounter Summary ---
Author Organization [facility] Address [address] [place] [address] Care Team Providers Care Energy Control Officer Name Role Phone Unavailable Primary Care Provider Unavailabl e Encounter Details Date Type Department Care Team (Late st Contact Info) Description 06/09/2021 Lab Requisition [facility] [address] [place] [id number] Ted Romero MD [address] [address] Social History Tobacco Use Types Packs/Day Years Used Date Smoking Tobacco: Never Assessed Sex and Gender Information Value Date Recorded Sex Assigned at Not on file Gender Identity Not on file Sexual Orientation Not on file documented as of this encounter Plan of Treatment Not on file documented as of this encounter Procedures Procedure Name Priority Date/Time Associated Diagnosis Comments DERMATOPATHOLOGY Routine 06/09/2021 12:0 0 AM CDT documented in this encounter Results * DERMATOPATHOLOGY (06/09/2021 12:00 AM CDT) Case Report Dermatopathology Report Case: [id number] Authorizing Provider: Tde Romero MD Collected: 06/09/2021 12:00 AM Ordering Location: [facility] Received: 06/09/2021 03:16 PM Pathologist: Fide Kraus MD Specimen: Skin, left upper arm 2 3:43 PM CDT DERMATOPATHOLOGY LABORATORY Final Diagnosis Specimen A. SKIN, left upper arm: SQUAMOUS PROLIFERATION (D48.5) (see microscopic description and comment) 2 3:43 PM CDT DERMATOPATHOLOGY LABORATORY Clinical History ISK vs. AK vs. BCC vs. SCC. Path# [id number] 2 3:43 PM CDT DERMATOPATHOLOGY LABORATORY Gross Description Specimen A: Received is one formalin filled container labeled with the patient's name and designated left upper arm. The specimen consists of a shave biopsy measuring [id number]. Jar 0. 2 3:43 PM CDT DERMATOPATHOLOGY LABORATORY Microscopic Description Specimen A. SKIN, left upper arm: Sections show a squamous proliferation with endophytic features, maturational disarray and nuclear pleomorphism of keratinocytes extending throughout the full thickness of the specimen. There is focal parakeratosis. The base of this lesion is not visualized. Focal dermal fibrosis is present. Additional deeper sections were obtained and reviewed. COMMENT: The histological differential diagnosis includes a keratoacanthoma-typ e squamous cell carcinoma with focal regression, which is somewhat favored, a hypertrophic actinic keratosis with endophytic features and adnexal extension, and an irritated and inflamed benign keratosis. 2 3:43 PM CDT DERMATOPATHOLOGY LABORATORY Disclaimer An external and internal positive and negative controls are appropriate for the histochemical, immunohistochemical and immunofluorescence stain(s) in this case (if any), except where stated explicitly. The performance characteristics of the stain(s) cited in this report were developed and its performance characteristic determined by the Dermatopathology Laboratory at [facility], directed by Dr. Trina Diana. These tests need not be, and therefore are not, approved by the [place] Food and Drug Administration. The tests are used for clinical purposes. Billing Codes Specimen Charges Stain Charges 17068 1 2 3:43 PM CDT DERMATOPATHOLOGY LABORATORY Embedded Images 2 3:43 PM CDT DERMATOPATHOLOGY LABORATORY Pathology/Cytolog y TISSUE SPECIMEN FROM SKIN / Unknown 06/09/2021 06/09/2021 3:16 PM CDT Ted Romero MD LAB - PATHOLOGY/CYTO LOGY ORDERABLES DERMATOPATHOLOGY LABORATORY [facility] - Department of Dermatology [address], [address] [phone] documented in this encounter Visit Diagnoses Not on filedocumented in this encounter
--- OUTSIDE RECORDS SUMMARY | 2024-04-06 01:25 | XMS_ITS ---
Author Organization [facility] Address [address] [place] [address] Care Team Providers Care Bobbin Collector Name Role Phone Mirna Foster Primary Care Provider Amber Naik Unavailable [phone] Allergies Allergen (clinical drug ingredient) Drug/Non Drug Allergy documented on EMR Reaction Allergy Type Onset Date Status penicillin G Penicillin G Sodium hives Drug Allergy Active REASON FOR VISIT 3 Month Psych F/U & Med Refill Medications Medication SIG (Take, Route, Frequency, Duration) Notes Start Date End Date Status Daily-Imtiaz - TAKE 1 TABLET BY SARAH TH DAILY for 30 Not-Taking Mirtazapine 15 MG 1 tablet at bedtime Orally Once a day for 30 day(s) 01/10/2021 Not-Taking hydrOXYzine HCl 10 MG 1 tablet as needed Orally Once a day for 30 days at night 03/04/2024 Active Vitamin D (Ergocalciferol) 1.25 MG (21422 UT) 1 capsule Orally for 30 day(s) Active Multivitamin - TAKE 1 TABLET BY SARAH TH DAILY Orally Once a day for 30 days Active Fluticasone Propionate 50 MCG/ACT 1 spray in each nostril Nasally Once a day for 30 days 09/11/2022 Active FLUoxetine HCl 20 MG 1 capsule Orally On ce a day for 30 days 03/04/2024 Active Cetirizine HCl 10 MG 1 tablet Orally Onc e a day for 30 days 09/11/2022 Active Osphena Active Probiotic - as directed Orally O nce a day Active Social History Sex Assigned At : Social History Observation Description Sex Assigned At Female Encounters Encounter Location Date Provider Diagnosis [address] [place] [address] 03/04/2024 Amber Naik Depression F32.9 and Anxiety F41.9 Assessments Encounter Date Diagnosis (ICD Code) Assessment Notes Treatment Notes Treatment Clinical Notes Section Notes 03/04/2024 Depression (ICD-10 - F32.9) Antidepressant education - reviewed side effects which may include increased risk of suicide, anxiety, sleep disturbance, nausea, dry mouth, increased bruising, sexual dysfunction, reyes, wt gain, and serotonin syndrome. Discussed talk half a lexapro for 3 days then stop and start fluoxetine the following day. Client v/u and states she has a pill-cutter at home. 03/04/2024 Anxiety (ICD-10 - F41.9) Decreasing, reports it is helpful but having fatigue and grogginess in microsoft windows engineer when waking. 03/04/2024 Other Reasons, potential benefits, potential risks, [...] AIMS, or vital signs. Plan Of Treatment Medication Medication Name Sig Start Date Stop Date Notes Escitalopram Oxalate 20 MG 1 tablet Oral ly Once a day for 90 days hydrOXYzine HCl 10 MG 1 tablet as needed Orally Once a day for 30 days 03/04/2024 hydrOXYzine Pamoate 25 MG 1 capsule at b edtime as needed Orally Once a day for 30 days FLUoxetine HCl 20 MG 1 capsule Orally On ce a day for 30 days 03/04/2024 Treatment Notes Assessment Notes Depression Antidepressant education - reviewed side effects which may include increased risk of suicide, anxiety, sleep disturbance, nausea, dry mouth, increased bruising, sexual dysfunction, reyes, wt gain, and serotonin syndrome. Discussed talk half a lexapro for 3 days then stop and start fluoxetine the following day. Client v/u and states she has a pill-cutter at home. Anxiety Decreasing, reports it is helpful but having fatigue and grogginess in microsoft windows engineer when waking. Other Reasons, potential benefits, potential risks, interactions [...] May also contact the 24-hour crisis hotline ([facility]), refer to the closest emergency [...] up. This session was completed telephonically with client/parental/guardian consent: Unable to determine movement status, assess appearance, affect, AIMS, or vital signs. Next Appt Details Follow Up: 4 Weeks, Reason: Psych F/U, may be telehealth Progress Notes * Giovanna WATTB:1965 ( 58 yo F)Acc No.[id number]:03/04/2024 Patient: M UICH, Yomaira Provider: Bienvenido Naik, MSN, MEDICAL CODER, SPIRITUAL COUNSELOR-C :1965 A ge:58 Y S ex:Female Date:03/04/2024 [address] [id number] Pcp:Mirna Foster Subjective: * Chief Complaints: * 3 Month Psych F/U & Med Refill * HPI: D epression Screening: PHQ-9 L ittle interest or pleasure in doing things M ore than half the days, F eeling down, depressed, or hopeless N early every day, T rouble falling or staying asleep, or sleeping too much M ore than half the days, F eeling tired or having little energy N early every day, P oor appetite or overeating S everal days, F eeling bad about yourself or that you are a failure, or have let yourself or your family down S everal days, T rouble concentrating on things, such as reading the newspaper or watching television N ot at all, M oving or speaking so slowly that other people could have noticed; or the opposite, being so fidgety or restless that you have been moving around a lot more than usual N ot at all, T houghts that you would be better off or of hurting yourself in some way N ot at all, T otal Score 1 2, I nterpretation M oderate Depression. I ntervention D epression Screening Findings P ositive, F ollow-Up for Depression N o Referral necessary, patient involved in behavioral health treatment .. S creening: [place] Suicide Severity Rating Scale (LF) D o you want to initiate with S creener form, 1 . Wish to be : Have you wished you were or wished you could go to sleep and not wake up? N o, 2 . Suicidal Thoughts: Have you actually had any thoughts of killing yourself? N o, 6 . Suicide Behaviour: Have you ever done anything,started to do anything, or prepared to end your life? N o, I nterpretation: L ow Risk. P sychiatric Assessment - Current Symptoms: How ct. doing today? Client is a 58 yo F on the phone today stating the last two weeks, I don't know if I have been stressing and feeling a bit down. I feel like my chest feels weird like anxiety attack-like. I know it isn't a heart attack. States I feel down from not having a family, and I was thinking about volunteering with [employer], but with how I am feeling, I don't think I can give the love that I have to anyone. Reports taking medications daily. States hydroxyzine does make her groggy in the mornings. States they are not as helpful as in the past. Coping: Breathing Depression: 07/28 Interest: Low Anxiety: 09/27 Anger/irritable: Denies, rare irritability Sleep: That has been rough. I take the pills, and they knock me out, but then I feel groggy. Appetite: Down a little, denies weight fluctuation Reports she has been feeling lonely with not having an immediate family or being . Social: Working continues, talks with best-friend often, Trinh. Concentration has been doing okay. Therapy: Denies, not currently Denies SI/HI. Medical changes/concerns: Denies. C SSRS Interpretation and Follow Up Plan: CSSRS Interpretation and Follow Up Plan C SSRS Screen documented using SF Y es, R isk Disposition from SF L ow - No Follow Up Plan Required, F ollow Up Plan N o Follow Up Plan required at this time.. * ROS: P sych ROS: Constitutional D enies. E yes D enies. E ars/Nose/Mouth/Throat D enies. R espiratory D enies. A llergic/Immunologic R eports,?Allergic rhinitis. C ardiovascular D enies. G I D enies. G U D enies. Musculoskeletal D enies. N eurological D enies. I ntegumentary D enies. E ndocrine D enies. H ematological/Lymphatic D enies. P sychiatric: Denies SI/HI. * Medical History: * Surgical History: D and C 1979 * Hospitalization/Major Diagno stic Procedure: g astritis 2001 * Family History: F ather: , father- lung cancer, hbp. M other: , mother- lung cancer, thyroid removal. 3 sister(s) - healthy. . * Social History: P rimary Social History: L iving Arrangement L iving Arrangement: I ndependent Living, I s this a supportive environment? Y es. A lcohol Use A lcohol Use Frequency: M onthly or less. I llicit Substance Usage I llicit Substance Usage: N o. E mployment Status E mployment Status: E mployed [employer]. * Medications: T akingProbiotic - Capsule as directed Orally Once a day Osphena Multivitamin - Tablet TAKE 1 TABLET BY MOUTH DAILY Orally Once a day Vitamin D (Ergocalciferol) 1.25 MG (15944 UT) Capsule 1 capsule Orally Cetirizine HCl 10 MG Tablet 1 tablet Orally Once a day Fluticasone Propionate 50 MCG/ACT Suspension 1 spray in each nostril Nasally Once a day Escitalopram Oxalate 20 MG Tablet 1 tablet Orally Once a day hydrOXYzine Pamoate 25 MG Capsule 1 capsule at bedtime as needed Orally Once a day Taking Probiotic - Capsule as directed Orally Once a day Taking Osphena Taking Multivitamin - Tablet TAKE 1 TABLET BY MOUTH DAILY Orally Once a day Taking Vitamin D (Ergocalciferol) 1.25 MG (45513 UT) Capsule 1 capsule Orally Taking Cetirizine HCl 10 MG Tablet 1 tablet Orally Once a day Taking Fluticasone Propionate 50 MCG/ACT Suspension 1 spray in each nostril Nasally Once a day Taking Escitalopram Oxalate 20 MG Tablet 1 tablet Orally Once a day Taking hydrOXYzine Pamoate 25 MG Capsule 1 capsule at bedtime as needed Orally Once a day Not-TakingMirtazapine 15 MG Tablet 1 tablet at bedtime Orally Once a day Daily-Imtiaz - Tablet TAKE 1 TABLET BY MOUTH DAILY Not-Taking Mirtazapine 15 MG Tablet 1 tablet at bedtime Orally Once a day Not- Taking Daily-Imtiaz - Tablet TAKE 1 TABLET BY MOUTH DAILY * Allergies: P enicillin G Sodium: hives - Allergyno[Allergies Verified] Objective: * Vitals: * Examination: M ental Status Exam: SENSORIUM AND COGNITION Alert, Oriented to Person, Oriented to Place, Oriented to Time, Oriented to Situation. ATTENTION AND CONCENTRATION No deficits. ATTITUDE AND BEHAVIOR Cooperative, Receptive. MEMORY Immediate, Recent, Remote. MOOD Euthymic. SPEECH QUANTITY Appropriate. SPEECH QUALITY Appropriate volume. THOUGHT PROCESS Coherent and goal directed. THOUGHT CONTENT Appropriate - WNL. SUICIDAL IDEATION Denies suicidal ideation. HOMICIDAL IDEATION Denies homicidal ideation. HALLUCINATIONS Denies hallucinations. INSIGHT F air. JUDGMENT F air. FUND OF KNOWLEDGE F air. ABILITY TO PARTICIPATE IN TREATMENT M oderate. WILLINGNESS TO PARTICIPATE IN TREATMENT High. E xam limited due to telephone encounter. Assessment: * Assessment: 1. D epression - F32.9 (Primary) 2 . A nxiety - F41.9 Plan: * Treatment: 2. A nxiety Stop hydrOXYzine Pamoate Capsule, 25 MG, 1 capsule at bedtime as needed, Orally, Once a day, 30 days, 30; S tart hydrOXYzine HCl Tablet, 10 MG, 1 tablet as needed, Orally, Once a day at night, 30 days, 30, Refills 0. Notes: Decreasing, reports it is helpful but having fatigue and grogginess in microsoft windows engineer when waking. 3. O thers Notes: Reasons, potential benefits, potential risks, interactions and [...] May also contact the 24-hour crisis hotline ([facility]), refer to the closest emergency [...] up. This session was completed telephonically with client/parental/guardian consent: Unable to determine movement status, assess appearance, affect, AIMS, or vital signs. * Procedure Codes: * Follow Up: 4 Weeks (Reason: Psych F/U, may be telehealth) * * ARTIST Sign off status: Completed true * Provider: Bienvenido Naik, MSN, MEDICAL CODER, SPIRITUAL COUNSELOR-C Date: 0 03/04/2024 Generated for Cee gotti/Perri/Maria Gsmitting on: 0 04/06/2024 01:25 AM MAC ARTIST History and Physical Notes * HPI (History of Present Illness) Category Sub-Category Detail Notes Category Not es Depression Screening PHQ-9 Little inte rest or pleasure in doing things: More than half the days Feeling down, depressed, or hopeless: Ne maverick every day Trouble falling or staying a sleep, or sleeping too much: More than half the days Feeling tired or having little energy: N early every day Poor appetite or overeating: Several day s Feeling bad about yourself o r that you are a failure, or have let yourself or your family down: Several days Trouble concentrating on thi ngs, such as reading the newspaper or watching television: Not at all Moving or speaking so slowly that other people could have noticed; or the opposite, being so fidgety or restless that you have been moving around a lot more than usual: Not at all Thoughts that you would be b margarita off or of hurting yourself in some way: Not at all Total Score: 12 Interpretation: Moderate Depression Intervention Depression Screening Findings: P ositive Follow-Up for Depression: No Referral necessary, patient involved in behavioral health treatment . Psychiatric Assessment - Current Symptoms How ct. doing today? Client is a 58 yo F on the phone today stating the last two weeks, I don't know if I have been stressing and feeling a bit down. I feel like my chest feels weird like anxiety attack-like. I know it isn't a heart attack. States I feel down from not having a family, and I was thinking about volunteering with [employer], but with how I am feeling, I don't think I can give the love that I have to anyone. Reports taking medications daily. States hydroxyzine does make her groggy in the mornings. States they are not as helpful as in the past. Coping: Breathing Depression: 07/28 Interest: Low Anxiety: 09/27 Anger/irritable: Denies, rare irritability Sleep: That has been rough. I take the pills, and they knock me out, but then I feel groggy. Appetite: Down a little, denies weight fluctuation Reports she has been feeling lonely with not having an immediate family or being . Social: Working continues, talks with best-friend often, Trinh. Concentration has been doing okay. Therapy: Denies, not currently Denies SI/HI. Medical changes/concerns: Denies Screening [place] Suicide Severity Rating Scale (LF) Do you want to initiate with: Screener form 1. Wish to be : Have you wished you were or wished you could go to sleep and not wake up?: No 2. Suicidal Thoughts: Have you actually had any thoughts of killing yourself?: No 6. Suicide Behavior Question: Have you ever done anything,started to do anything, or prepared to end your life?: No Interpretation:: Low Risk CSSRS Interpretation and Follow Up Plan CSSRS Interpretation and Follow Up Plan CSSRS Screen documented using SF: Yes Risk Disposition from SF: Low - No Follo w Up Plan Required Follow Up Plan: No Follow Up Plan requir ed at this time. Examination Category Sub-Category Detail Notes Category Not es Mental Status Exam SENSORIUM AND COGNITION Alert, Oriented to Person, Oriented to Place, Oriented to Time, Oriented to Situation Exam limited due to telephone encounter ATTENTION AND CONCENTRATION No deficits ATTITUDE AND BEHAVIOR Cooperative, Manager Air tive MEMORY Immediate, Recent, R emote MOOD Euthymic SPEECH QUANTITY Appropriate SPEECH QUALITY Appropriate volume THOUGHT PROCESS Coherent and goal di rected THOUGHT CONTENT Appropriate - WNL SUICIDAL IDEATION Denies suicidal idea tion HOMICIDAL IDEATION Denies homicidal yue ation HALLUCINATIONS Denies hallucination s INSIGHT Fair JUDGMENT Fair FUND OF KNOWLEDGE Fair ABILITY TO PARTICIPATE IN TREATMENT Mode rate WILLINGNESS TO PARTICIPATE IN TREATMENT High
--- OUTSIDE RECORDS SUMMARY | 2024-04-06 01:25 | XMS_ITS ---
Author Organization [facility] Address [address] [place] [address] Care Team Providers Care Spares Scheduler Name Role Phone Mirna Foster Primary Care Provider Amber Naik Unavailable [phone] Allergies Allergen (clinical drug ingredient) Drug/Non Drug Allergy documented on EMR Reaction Allergy Type Onset Date Status penicillin G Penicillin G Sodium hives Drug Allergy Active REASON FOR VISIT 4 week F/U Medications Medication SIG (Take, Route, Frequency, Duration) Notes Start Date End Date Status Cetirizine HCl 10 MG 1 tablet Orally Onc e a day for 30 days 09/11/2022 Active Vitamin D (Ergocalciferol) 1.25 MG (45525 UT) 1 capsule Orally for 30 day(s) Active Multivitamin - TAKE 1 TABLET BY SARAH TH DAILY Orally Once a day for 30 days Active Osphena Active Fluticasone Propionate 50 MCG/ACT 1 spray in each nostril Nasally Once a day for 30 days 09/11/2022 Active Citalopram Hydrobromide 20 MG 1 tablet Orally Once a day for 30 days 04/01/2024 Active hydrOXYzine HCl 10 MG 1 tablet as needed Orally Once a day for 30 days at night Active Probiotic - as directed Orally O nce a day Active Daily-Imtiaz - TAKE 1 TABLET BY SARAH TH DAILY for 30 Not-Taking Mirtazapine 15 MG 1 tablet at bedtime Orally Once a day for 30 day(s) 01/10/2021 Not-Taking Social History Sex Assigned At : Social History Observation Description Sex Assigned At Female Encounters Encounter Location Date Provider Diagnosis [address] [place] [address] 04/01/2024 Amber Naik Depression F32.9 and Anxiety F41.9 Assessments Encounter Date Diagnosis (ICD Code) Assessment Notes Treatment Notes Treatment Clinical Notes Section Notes 04/01/2024 Depression (ICD-10 - F32.9) Hx of doing well with Lexapro. Fluoxetine with SE of restlessness, insomnia, poor appetite. Stopping fluoxetine, starting citalopram. Discussed r/b/se. 04/01/2024 Anxiety (ICD-10 - F41.9) At 25mg states having fatigue and grogginess in cooler man when waking. Continues at 10mg at this time. 04/01/2024 Other Reasons, potential benefits, potential risks, [...] May also contact the 24-hour crisis hotline ([facility]), refer to the closest emergency room or [...] Name Sig Start Date Stop Date Notes Citalopram Hydrobromide 20 MG 1 tablet O rally Once a day for 30 days 04/01/2024 hydrOXYzine HCl 10 MG 1 tablet as needed Orally Once a day for 30 days FLUoxetine HCl 20 MG 1 capsule Orally On ce a day for 30 days Treatment Notes Assessment Notes Depression Hx of doing well with Lexapro. Fluoxetine with SE of restlessness, insomnia, poor appetite. Stopping fluoxetine, starting citalopram. Discussed r/b/se. Anxiety At 25mg states havin g fatigue and grogginess in cooler man when waking. Continues at 10mg at this time. Other Reasons, potential benefits, potential risks, interactions [...] * Giovanna WATTB:1965 ( 58 yo F)Acc No.[id number]:04/01/2024 Patient: Yomaira ROMERO Provider: Bienvenido Naik, MSN, FABRICATION SUPERVISOR, RUG DRYING MACHINE OPERATOR-C :1965 A ge:58 Y S ex:Female Date:04/01/2024 Address:[address] [place], [place] [id number] Pcp:Mirna Foster Subjective: * Chief Complaints: * 4 week F/U * HPI: D epression Screening: PHQ-9 L ittle interest or pleasure in doing things N early every day, F eeling down, depressed, or hopeless M ore than half the days, T rouble falling or staying asleep, or sleeping too much N early every day, F eeling tired or having little energy M ore than half the days, P oor appetite or overeating N early every day,?Feeling bad about yourself or that you are a failure, or have let yourself or your family down Not at all, T rouble concentrating on things, such as reading the newspaper or watching television N ot at all, M oving or speaking so slowly that other people could have noticed; or the opposite, being so fidgety or restless that you have been moving around a lot more than usual?Several days, T houghts that you would be better off or of hurting yourself in some way Not at all, T otal Score 1 4, I nterpretation M oderate Depression. I ntervention D epression Screening Findings P ositive, F ollow-Up for Depression N o Referral necessary, patient involved in behavioral health treatment .. S creening: [place] Suicide Severity Rating Scale (LF) D o you want to initiate with S creener form, 1 . Wish to be : Have you wished you were or wished you could go to sleep and not wake up? N o, 2 . Suicidal Thoughts: Have you actually had any thoughts of killing yourself? N o, 6 . Suicide Behavior Question: Have you ever done anything,started to do anything, or prepared to end your life? N o, I nterpretation: L ow Risk. C SSRS Interpretation and Follow Up Plan: CSSRS Interpretation and Follow Up Plan C SSRS Screen documented using SF Y es, R isk Disposition from L ow - No Follow Up Plan Required, F ollow Up Plan N o Follow Up Plan required at this time.. P sychiatric Assessment - Current Symptoms: How ct. doing today? Client states she has been feeling weird. States taking medication daily. Reports feeling like she has restlessness. States sleep has been poor. Energy level has been fair, but I yawn a lot throughout the day. Appetite has been decreased. Interest has been low. Reports depression is present, but it is more anxiety than anything. Coping: Reading scriptures. Social: Talks with family/friends, talks with coworkers Concentration has been good. Anger/irritability: Denies Drugs/ETOH: Denies Hallucinations/paranoia: Denies Denies SI/HI. Medical changes/concerns: Denies, going in to the Dr today for a wellness check. PCP is Dr Adams. 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 * Medications: T akingProbiotic - Capsule as directed Orally Once a day Osphena Multivitamin - Tablet TAKE 1 TABLET BY MOUTH DAILY Orally Once a day Vitamin D (Ergocalciferol) 1.25 MG (44767 UT) Capsule 1 capsule Orally Cetirizine HCl 10 MG Tablet 1 tablet Orally Once a day Fluticasone Propionate 50 MCG/ACT Suspension 1 spray in each nostril Nasally Once a day FLUoxetine HCl 20 MG Capsule 1 capsule Orally Once a day hydrOXYzine HCl 10 MG Tablet 1 tablet as needed Orally Once a day at nightTaking Probiotic - Capsule as directed Orally Once a day Taking Osphena Taking Multivitamin - Tablet TAKE 1 TABLET BY MOUTH DAILY Orally Once a day Taking Vitamin D (Ergocalciferol) 1.25 MG (75025 UT) Capsule 1 capsule Orally Taking Cetirizine HCl 10 MG Tablet 1 tablet Orally Once a day Taking Fluticasone Propionate 50 MCG/ACT Suspension 1 spray in each nostril Nasally Once a day Taking FLUoxetine HCl 20 MG Capsule 1 capsule Orally Once a day Taking hydrOXYzine HCl 10 MG Tablet 1 tablet as needed Orally Once a day at nightNot-TakingMirtazapine 15 MG Tablet 1 tablet at bedtime Orally Once a day Daily-Imtiaz - Tablet TAKE 1 TABLET BY MOUTH DAILY Not-Taking Mirtazapine 15 MG Tablet 1 tablet at bedtime Orally Once a day Not-Taking Daily-Imtiaz - Tablet TAKE 1 TABLET BY [...] F41.9 Plan: * Treatment: 2. A nxiety Refill hydrOXYzine HCl Tablet, 10 MG, 1 tablet as needed, Orally, Once a day at night, 30 days, 30, Refills 0. Notes: At 25mg states having fatigue and grogginess in cooler man when waking. Continues at 10mg at this time. 3. O thers Notes: Reasons, potential benefits, [...] Psych F/U, may be telehealth) * * MOBILE INSURANCE CLAIM EXAMINER Sign off status: Completed true * Provider: Bienvenido Naik, MSN, FABRICATION SUPERVISOR, RUG DRYING MACHINE OPERATOR-C Date: 0 04/01/2024 Generated for Cee gotti/Perri/Elle on: 0 04/06/2024 01:25 AM AUTOMOBILE INSURANCE CLAIM EXAMINER History and Physical Notes * HPI (History of Present Illness) Category Sub-Category Detail Notes Category Not es Depression Screening PHQ-9 Little inte rest or pleasure in doing things: Nearly every day Feeling down, depressed, or hopeless: Mo re than half the days Trouble falling or staying asleep, or sl eeping too much: Nearly every day Feeling tired or having little energy: M ore than half the days Poor appetite or overeating: Nearly ever y day Feeling bad about yourself o r that you are a failure, or have let yourself or your family down: Not at all Trouble concentrating on thi ngs, such as reading the newspaper or watching television: Not at all Moving or speaking so slowly that other people could have noticed; or the opposite, being so fidgety or restless that you have been moving around a lot more than usual: Several days Thoughts that you would be b margarita off or of hurting yourself in some way: Not at all Total Score: 14 Interpretation: Moderate Depression Intervention Depression Screening Findings: P ositive Follow-Up for Depression: No Referral necessary, patient involved in behavioral health treatment . Psychiatric Assessment - Current Symptoms How ct. doing today? Client states she has been feeling weird. States taking medication daily. Reports feeling like she has restlessness. States sleep has been poor. Energy level has been fair, but I yawn a lot throughout the day. Appetite has been decreased. Interest has been low. Reports depression is present, but it is more anxiety than anything. Coping: Reading scriptures. Social: Talks with family/friends, talks with coworkers Concentration has been good. Anger/irritability: Denies Drugs/ETOH: Denies Hallucinations/paranoia: Denies Denies SI/HI. Medical changes/concerns: Denies, going in to the Dr today for a wellness check. PCP is Dr Adams. Screening [place] Suicide Severity Rating Scale (LF) Do you [...] CONCENTRATION No deficits ATTITUDE AND BEHAVIOR Cooperative, Education Spec tive MEMORY Immediate, Recent, R emote MOOD [...]
--- OUTSIDE RECORDS SUMMARY | 2024-04-06 01:25 | XMS_ITS ---
Author Organization [facility] Address [address] [place] [address] Care Team Providers Care Cost Recovery Technician Name Role Phone Mirna Foster Primary Care Provider Amber Naik Unavailable [phone] REASON FOR VISIT refills Medications Medication SIG (Take, Route, Frequency, Duration) Notes Start Date End Date Status hydrOXYzine Pamoate 25 MG 1 capsule at b edtime as needed Orally Once a day for 14 days 2023 Active Escitalopram Oxalate 20 MG 1 tablet Oral ly Once a day for 14 days Active Social History Sex Assigned At : Social History Observation Description Sex Assigned At Female Encounters Encounter Location Date Provider Diagnosis [address] [address] 02/20/2024 Amber Naik Depression F32.9 and Anxiety F41.9 Assessments Encounter Date Diagnosis (ICD Code) Assessment Notes Treatment Notes Treatment Clinical Notes Section Notes 02/20/2024 Depression (ICD-10 - F32.9) 02/20/2024 Anxiety (ICD-10 - F41.9) Plan Of Treatment Medication Medication Name Sig Start Date Stop Date Notes hydrOXYzine Pamoate 25 MG 1 capsule at b edtime as needed Orally Once a day for 14 days 2023 Escitalopram Oxalate 20 MG 1 tablet Oral ly Once a day for 14 days Progress Notes * Rene WATT:1965 ( 58 yo F)Acc No.[id number]:02/20/2024 Patient: Yomaira ROMERO :1965 A ge:58 Y S ex:Female Address:[facility] [place], [address] * Refills Refill Escitalopram Oxalate Tablet, 20 MG, Orally, 14 Tablet, 1 tablet, Once a day, 14 days, Refills=0 Refill hydrOXYzine Pamoate Capsule, 25 MG, Orally, 14 Capsule, 1 capsule at bedtime as needed, Once a day, 14 days, Refills=0 * true * Date: Generated for Cee gotti/Perri/Dayitting on: 0 04/06/2024 01:25 AM HULLER OPERATOR
--- OUTSIDE RECORDS SUMMARY | 2024-04-06 01:25 | XMS_ITS | Patient Health Summary ---
Author Organization [facility] Address [address] [place] [address] Care Team Providers Care Real Estate Director Name Role Phone Unavailable Primary Care Provider Unavailabl e Note from [facility] [place][note 2],non-owned Affiliates and Associated Physician Practices is amultiple site organization consisting of ambulatory clinics and hospital sitesin [place], [place], [place] and [place]. This disclosure is being madepursuant to the Care Everywhere program and may not contain all information available regarding this patient. Last updated 17.[facility] Social History Tobacco Use Types Packs/Day Years Used Date Smoking Tobacco: Never Assessed Sex and Gender Information Value Date Recorded Sex Assigned at Not on file Gender Identity Not on file Sexual Orientation Not on file Procedures * DERMATOPATHOLOGY(Performed 06/09/2021) Results * DERMATOPATHOLOGY (06/09/2021 12:00 AM CDT) Case Report Dermatopathology Report Case: [id number] Authorizing Provider: Ted Romero MD Collected: 06/09/2021 12:00 AM Ordering Location: [facility] DermPath Lab Received: 06/09/2021 03:16 PM Pathologist: Fide Kraus MD Specimen: Skin, left upper arm 2 3:43 PM CDT DERMATOPATHOLOGY LABORATORY Final Diagnosis Specimen A. SKIN, left upper arm: SQUAMOUS PROLIFERATION (D48.5) (see microscopic description and comment) 2 3:43 PM CDT DERMATOPATHOLOGY LABORATORY Clinical History ISK vs. AK vs. BCC vs. SCC. Path# [id number] 2 3:43 PM CDT DERMATOPATHOLOGY LABORATORY Gross Description Specimen A: Received is one formalin filled container labeled with the patient's name and designated left upper arm. The specimen consists of a shave biopsy measuring [id number]. Jar 0. 2 3:43 PM CDT DERMATOPATHOLOGY [...] characteristic determined by the Dermatopathology Laboratory at [facility], directed by Dr. Trina Diana. These tests need not be, and therefore are not, approved by the [place] Food and Drug Administration. The tests are used for clinical purposes. Billing Codes Specimen Charges Stain Charges 31972 1 2 3:43 PM CDT DERMATOPATHOLOGY LABORATORY Embedded Images 2 3:43 PM CDT DERMATOPATHOLOGY LABORATORY Pathology/Cytolog y TISSUE SPECIMEN FROM SKIN / Unknown 06/09/2021 06/09/2021 3:16 PM CDT Ted Romero MD LAB - PATHOLOGY/CYTO LOGY ORDERABLES DERMATOPATHOLOGY LABORATORY [facility] - Department of Dermatology [address], [address] [phone]
--- OUTSIDE RECORDS SUMMARY | 2024-04-06 01:25 | XMS_ITS | Clinical Summary ---
Author Organization [facility] Address [address] [place] [address] Care Team Providers Care Elderly Companion Name Role Phone Porsche Walter MD Primary Care Provider [phone] Social History Tobacco Use Types Packs/Day Years Used Date Smoking Tobacco: Never Assessed Comments Unknown Sex and Gender Information Value Date Recorded Sex Assigned at Not on file Legal Sex Female 7:30 PM CDT Gender Identity Not on file Sexual Orientation Not on file Plan of Treatment Health Maintenance Due Date Last Done Comments Cervical Cancer Screening Pa p Smear (Age 30 to 64) Every 3 Years 1965 Colorectal Cancer Screening Colonoscopy (10 Years) 1965 Annual Physical 11/18/1970 Hepatitis C 11/18/1985 DTaP, Tdap and Td Vaccines ( 1 - Tdap) 11/18/1986 Hepatitis B Vaccines (1 of 3 - 19+ 3-dose series) 11/18/1986 Cervical Cancer Screening Pa p with HPV Testing (Age 30 to 64) Every 5 Years 11/18/1997 Cervical Cancer Screening with HPV 11/18/1997 Mammogram Screening 2007 Zoster Vaccines (1 of 2) 11/18/2017 COVID-19 Vaccine (2023-2 5 season) 2023 Influenza Adult (#1) 2023 Meningococcal B Vaccine Aged Out No l onger eligible based on patient's age to complete this topic Meningococcal Vaccine Aged Out No viviane paula eligible based on patient's age to complete this topic Pneumococcal Vaccine: Pediat rics (0 to 5 Years) and At-Risk Patients (6 to 64 Years) Aged Out No longer eligible b ased on patient's age to complete this topic RSV Immunizations Under 20 Months Aged Out No longer eligible based on patient's age to complete this topic Care Teams Elderly Companion Relationship Specialty Start Date End Date Porsche Walter MD [facility] - General 08/12/14
--- NOTE | 2024-04-06 07:38 | P.HP_ITS ---
History of Present Illness History of Present Illness Consent: Risks, benefits, and alternatives have been discussed and questions answered. Patient agrees to proceed with procedure. Chief complaint: Post Menopausal Bleeding Narrative: Yomaira aWtt is a 58 year old female with postmenopausal bleeding episode. The bleeding lasted for 2 weeks. It was recommended to undergo D&C hysteroscopy. Risks of infection, bleeding, and perforation were reviewed. Possible pathology was also reviewed. Patient voices understanding and agrees to proceed. Review of Systems Review of Systems: not repeated day of surgery; patient states no changes in status [facility] Past Medical History Medical History (Updated 04/06/24 @ 07:41 by Nieves Adams MD) Anxiety and depression Surgical History Surgical History (Updated 04/06/24 @ 07:40 by Nieves Adams MD) History of D&C Age 20 Family History Family History Father Hypertension Sibling Patient's sister is in good health Mother Family history of lung cancer, Onset Age: 59 Social History Social History Smoking status: Never smoker Alcohol intake: current Living arrangements: with family Spiritual care concerns: No Meds Home Medications and Allergies Home Medications ?Medication ?Instructions ?Recorded ?Confirmed ?Type Lactobacillus 25 billion 1 cap PO DAILY 04/02/24 04/02/24 History cell-Bifido 25 billion [id number] capsule citalopram 20 mg tablet 20 mg PO DAILY 04/02/24 04/02/24 History cyanocobalamin (vitamin B-12) 1,000 mcg PO DAILY 04/02/24 04/02/24 History 1,000 mcg tablet (Vitamin B-12) multivitamin (Daily Multi-Vitamin 1 tablet PO DAILY 04/02/24 04/02/24 History tablet) vitamin E 268 mg (400 unit) capsule 268 mg PO DAILY 04/02/24 04/02/24 History Allergies Allergy/AdvReac Type Severity Reaction Status Date / Time Penicillins Allergy Intermediate HIVES Verified 04/02/24 09:09 Exam Const: General: healthy appearing and alert Orientation/consciousness: patient oriented x3 Resp: Effort & Inspection: normal respiratory effort GI: GI Palp: Yes Soft to palpation, No Tenderness to palpation present (GI) and No Palpable mass present : External Female Exam: normal external appearance Speculum Exam - Vagina: normal appearance of the vagina and normal vaginal discharge Speculum Exam - Cervix: normal appearance of the cervix Bimanual exam- vagina & uterus: uterine size normal and consistency normal Bimanual Exam- Adnexa, ot her: normal adnexae and No adnexal tenderness Neuro: General: patient oriented x3 Assessment and Plan Assessment and plan (1) Post-menopausal bleeding: Code(s): N95.0 - Postmenopausal bleeding Status: Acute Assessment and Plan: Plan to proceed with D&C hysteroscopy
--- NOTE | 2024-04-06 07:38 | WPDHPUPDATE1 ---
History and Physical Update Update Date/Time: 04/06/24 07:38 History and Physical has been reviewed, including an updated exam of the patient. There are NO changes in the patient's condition. Risks, benefits, and alternatives have been discussed and questions answered. Patient agrees to proceed with procedure.
[2024-04-06 09:00] VITALS: BP 118/80; PULSE 74; RESP 14; TEMP 36.8; O2SAT 100
[2024-04-06] MEDS: ACETAMINOPHEN 500 MG TABLET 1000 MG PO (09:25)
[2024-04-06 09:58] VITALS: BMI 25.0
--- NOTE | 2024-04-06 11:09 | P.PNAN_ITS ---
Anes - Initial Pre Proc Eval Procedure: Operation Date: 04/06/24 11:00 Proposed Procedures p Hysteroscopy Dilation and Curettage - Nieves Adams MD Date/Time: 04/06/24 11:09 Surgeon: Nieves Adams MD Pre Op Diagnosis: Post Menopausal Bleeding Patient Data Age: 58 Gender: F Height: 1.68 m Weight: 70.3 kg Last Vital Signs Temp 36.8 C 04/06/24 09:00 Pulse 74 04/06/24 09:00 Resp 14 04/06/24 09:00 BP 118/80 04/06/24 09:00 Pulse Ox 100 04/06/24 09:00 O2 Del Method Room Air 04/06/24 09:00 Allergies Allergy/AdvReac Type Severity Reaction Status Date / Time Penicillins Allergy Intermediate HIVES Verified 04/06/24 09:54 Home Medications ?Medication ?Instructions ?Recorded ?Confirmed ?Type Lactobacillus 25 billion 1 cap PO DAILY 04/02/24 04/02/24 History cell-Bifido 25 billion [id number] capsule citalopram 20 mg tablet 20 mg PO DAILY 04/02/24 04/06/24 History cyanocobalamin (vitamin B-12) 1,000 mcg PO DAILY 04/02/24 04/06/24 History 1,000 mcg tablet (Vitamin B-12) multivitamin (Daily Multi-Vitamin 1 tablet PO DAILY 04/02/24 04/06/24 History tablet) vitamin E 268 mg (400 unit) capsule 268 mg PO DAILY 04/02/24 04/06/24 History Patient hx anesthesia problems: none Family hx anesthesia problems: none Results Review: All pre-operative results and documents have been reviewed as part of the pre- operative evaluation. [facility] Past Medical History Medical History Anxiety and depression Surgical History Surgical History History of D&C Age 20 Family History Family History Father Hypertension Sibling Patient's sister is in good health Mother Family history of lung cancer, Onset Age: 59 Social History Social History Smoking status: Never smoker Alcohol intake: current Living arrangements: with family Spiritual care concerns: No Anes - Eval Final PreProcedure Day of Procedure 04/06/24 11:09 Patient weight: overweight Heart: regular rate and rhythm Lungs: clear to auscultation and normal air movement Airway: Mallampati scale class II Neurological: alert and oriented Last oral intake: >/= 8 hours ASA classification: II Emergent: no Anesthetic plan: proceed Anesthesia type and monitoring: general GIVS and standard monitoring Results Review: All pre-operative results and documents have been reviewed as part of the pre- operative evaluation. Informed Consent: The patient's anesthetic plan and its attendant risks and benefits were discussed with the patient/family/POA. Questions were solicited and answers provided to the satisfaction of the patient/family/POA.
[2024-04-06] MEDS: LACTATED RINGERS 1,000 ML 30 ML IV CONT (11:13)
--- NOTE | 2024-04-06 11:40 | P.OP_ITS ---
Procedure Note - Detailed Date of Procedure 04/06/24 Pre-op Diagnosis Post Menopausal Bleeding Post-op Diagnosis Same Procedure Performed D&C hysteroscopy Surgeon Nieves Adams MD Anesthesia MAC Findings Uterus sounds to 5cm and is grossly atrophic. Description of Procedure The patient was taken to the operating room was placed under anesthesia in the dorsal lithotomy position. She was prepped and draped in the usual sterile fashion. [place] speculum was placed in the vagina and the cervix grasped on the anterior lip with a tenaculum. The uterus was attempted to be sounded but due to stenosis this did not progress past 1cm. The cervix is serially dilated using Hegar to a 5. The uterus was unable to be sounded to 5cm. The diagnostic hysteroscope was placed and with only atrophic findings and no lesions the hysteroscope was removed. The endometrium is sharply curetted using the sharp OO curette. Minimal material was obtained consistent with the visual appearance. All instruments were removed. Sponge, needle, and instrument counts are correct per the OR staff. Patient was awakened from anesthesia and taken to recovery in stable condition. Estimated Blood Loss 5 Drains No Packing No Pathology Yes (Endometrial curettings) Complications No immediate complications Condition Stable Disposition PACU
[2024-04-06 11:41] VITALS: BP 120/82; PULSE 74; RESP 14; O2SAT 100
[2024-04-06 12:10] VITALS: BP 129/76; PULSE 60; RESP 20
[2024-04-06 12:35] VITALS: BP 129/76; PULSE 60; RESP 20
== END 2024-04-06 12:40 | disposition home or self-care (01) ==
PROVIDERS: PCP Nurse Practitioner; Visit Provider Obstetrics & Gynecology Gynecology
PROC: 0U5B8ZZ Destruction of Endometrium, Via Natural or Artificial Opening Endoscopic (ICD-10-PCS; CPT 58563; principal; 2024-04-06 11:00)
DX: N85.8 Other specified noninflammatory disorders of uterus (principal); F41.8 Other specified anxiety disorders; Z98.890 Other specified postprocedural states; Z80.1 Family history of malignant neoplasm of trachea, bronchus and lung
CPT/HCPCS: 58558; 88305; A9270; J2003; J2250; J2704; J3010; J7120

== ENCOUNTER 2024-11-13 14:08 | Outpatient (CLI) | payer BC, SELFPAY ==
--- NOTE | ~2024-11-13 | DEXA_ITS ---
Bone Density Report Name: IKE MCFARLAND Age: 58 Sex: Female Ethnicity: White Date of : 1965 Indication: postmenopausal; screening for osteoporosis; Referring Provider: NEELIMA ARROYO Study: Bone densitometry was performed. Exam Date: November 13, 2024 Accession number: [id number] Bone Density: Region BMD T-score Z-score Classification AP Spine(L1-L4) 0.912 -1.2 0.0 Osteopenia Femoral Neck (Left) 0.780 -0.6 0.5 Normal Total Hip (Left) 0.918 -0.2 0.6 Normal Femoral Neck (Right) 0.775 -0.7 0.5 Normal Total Hip (Right) 0.872 -0.6 0.2 Normal Total Hip Mean 0.895 -0.4 0.4 Normal World Health Organization criteria for BMD impression classify patients as: Normal (T-score at or above -1.0), Osteopenia (T-score between -1.0 and -2.5), or Osteoporosis (T-score at or below -2.5). 10-year Fracture Risk(1): Major Osteoporotic Fracture 6.1% Hip Fracture 0.2% Reported Risk Factors: [place] (), Neck BMD=0.775, BMI=25.3 (1) FRAX(R) Version 3.08. Fracture probability calculated for an untreated patient. Fracture probability may be lower if the patient has received treatment. Previous Exams: -- Region Exam Age BMD T-score BMD Change BMD Change Date g/cm2 vs Baseline vs Previous -- AP Spine (L1-L4) 11/13/2024 58 0.912 -1.2 -5.9%* -5.9%* 07/05/2020 54 0.969 -0.7 Total Hip(Left) 11/13/2024 58 0.918 -0.2 -5.1%* -5.1%* 07/05/2020 54 0.967 0.2 Total Hip(Right) 11/13/2024 58 0.872 -0.6 -6.9%* -6.9%* 07/05/2020 54 0.936 0.0 -- *Denotes significance at 95% confidence level, LSC for AP Spine = 0.022 g/cm2, LSC for Total Hip = 0.027 g/cm2 Clinical Information Provided by Patient: Has used the following medications: HRT (i.e. estrogen/hormone therapy), Vitamin D, Calcium Patient maximum height was 66 Menopause Age: 51 Drinks caffeinated beverages Onset of menses at age 14 Number of children 0 Impression: The patient has low bone mass, based on the Total Spine T-score. The patient has an estimated ten-year risk of hip fracture of 0.2% and an estimated ten-year risk of major fracture of 6.1%, based on the WHO FRAX algorithm. The BMD for the AP Spine (L1-L4) decreased, changing by -5.9% since the last DXA exam. The BMD for the Total Hip(Left) decreased, changing by -5.1% since the last DXA exam. The BMD for the Total Hip(Right) decreased, changing by -6.9% since the last DXA exam. Discussion: BONE DENSITY IS LOW AT ONE OR MORE SKELETAL SITES. This patient's lowest T-score is low at one or more skeletal sites. It meets the World Health Organization's (WHO) criteria for ?low bone mass? (T-score between -1.0 and -2.5). The patient's 10-year risk of fracture as calculated by FRAX is less than the threshold where pharmacological therapy is recommended by the National Osteoporosis Foundation (NOF). However, all treatment decisions require clinical judgment and consideration of individual patient factors, including patient preferences, comorbidities, previous drug use, risk factors not captured in the FRAX model (e.g., frailty, falls, vitamin D deficiency, increased bone turnover, interval significant decline in bone density) and possible under or overestimation of fracture risk by FRAX. The patient should follow a healthful lifestyle (good nutrition with adequate calcium and vitamin D, and appropriate weight-bearing exercise). Follow-Up: Consider repeating this study in 2 years to reassess this patient's status, or sooner if there is some new clinical indication. Reported by: CIRILO on 11/13/2024 2:43:00 PM. Reviewed, dictated and finalized at location A.
--- NOTE | ~2024-11-13 | MM_ITS ---
EXAMINATION: MM screening [facility] BI w maria del carmen HISTORY: Screening TECHNIQUE: Craniocaudal and mediolateral oblique 3-D tomosynthesis images were obtained and synthetic 2-D images were generated. CAD analysis was submitted and interpreted. COMPARISON: Comparison to multiple prior studies sequentially, with oldest reviewed study dated 09/12/2015. BREAST PARENCHYMAL COMPOSITION: Not dense: There are scattered areas of fibroglandular density. FINDINGS: There is no evidence of suspicious mass, calcification, or architectural distortion to suggest malignancy in either breast. There has been no suspicious interval change. IMPRESSION: 1. No mammographic evidence of malignancy. 2. Recommend routine screening mammography in one year. BI-RADS Category 1: Negative Reviewed, dictated and finalized at location B.
== END 2024-11-13 14:09 | disposition home or self-care (01) ==
LOC: MICIMG 14:10
PROVIDERS: PCP Family Medicine; Visit Provider Obstetrics & Gynecology Gynecology
DX: Z12.31 Encounter for screening mammogram for malignant neoplasm of breast (principal); Z13.820 Encounter for screening for osteoporosis; M85.88 Other specified disorders of bone density and structure, other site; Z78.0 Asymptomatic menopausal state
CPT/HCPCS: 77063; 77067; 77080